=== PATIENT | male | born 1990 | race Caucasian/White ===

== ENCOUNTER 2023-09-17 02:10 | Emergency (ER) | payer MEDICAID, OTHER ==
[~2023-09-17] VITALS: Ht 160 cm; Wt 56.7 kg
[2023-09-17 02:33] VITALS: BP 133/92; TEMP 98.2; O2SAT 97
[2023-09-17] MEDS ORDERED: PENICILLIN G BENZATHINE 2.4 MMU/4 ML ML IM ONE ×2 (03:00→03:05)
== END 2023-09-17 03:46 | disposition home or self-care (01) ==
LOC: ER 02:18
DX: A05.1 Botulism food poisoning (principal); Z88.8 Allergy status to other drugs, medicaments and biological substances
CPT/HCPCS: 99283; 96372; J0558